=== PATIENT | male | born 1965 | race African-American/Black ===

== ENCOUNTER 2017-01-29 23:20 | Emergency (ER) | payer BC ==
[~2017-01-29] VITALS: Ht 180.3 cm; Wt 66.5 kg
[2017-01-30] MEDS ORDERED: MAALOX/HYOSCYAMINE/LIDOCAINE 45 ML BOTTLE ONE (00:39)
[2017-01-30] MEDS ORDERED: MAALOX/HYOSCYAMINE/LIDOCAINE 45 ML BOTTLE PO ONE (01:00)
[2017-01-30 01:02] LABS: ASPARTATE AMINO TRANSFERASE 41 U/L (15-37); BLOOD UREA NITROGEN 16 mg/dL (7-18)
[2017-01-30 01:19] LABS: DIFF TOTAL CELLS COUNTED 100 CELL DIFF
[2017-01-30 01:22] LABS: VERIFY COUNTS? YES
[2017-01-30 01:29] LABS: DAU SCREEN DISCLAIMER
[2017-01-30 02:33] VITALS: BP 127/89
== END 2017-01-30 02:35 | disposition home or self-care (01) ==
LOC: ED 23:59
DX: R10.84 Generalized abdominal pain (principal); F14.180 Cocaine abuse with cocaine-induced anxiety disorder; F15.180 Other stimulant abuse with stimulant-induced anxiety disorder; F17.200 Nicotine dependence, unspecified, uncomplicated
CPT/HCPCS: 36415; 80053; 80307; 81003; 83690; 85025; 99284

== ENCOUNTER 2017-02-21 16:05 | Emergency (ER) | payer BC ==
[~2017-02-21] VITALS: Ht 180.3 cm; Wt 72.6 kg
[2017-02-21] MEDS ORDERED: DIPH,PERTUSS(ACELL),TET VAC/PF 0.5 ML IM-VACC ONE (16:30)
[2017-02-21] MEDS ORDERED: SODIUM CHLORIDE FLUSH 10ML SYR IVF ONE (16:30)
[2017-02-21 16:52] LABS: BLOOD UREA NITROGEN 15 mg/dL (7-18)
[2017-02-21] MEDS ORDERED: MORPHINE SULFATE 4 MG/ML, 1ML ONE (17:25)
[2017-02-21] MEDS ORDERED: morphine SULFATE 10 MG/ML, 1ML IVPush ONE ×2 (17:30→19:00)
[2017-02-21] MEDS ORDERED: AMPICILLIN/SULBACTAM 3 GM in SODIUM CHLORIDE 0.9% 100 ML IV ONE (18:00)
[2017-02-21 18:38] VITALS: BP 128/87
== END 2017-02-21 19:34 | disposition home or self-care (01) ==
LOC: ED 18:34
DX: K04.7 Periapical abscess without sinus (principal); L02.01 Cutaneous abscess of face
CPT/HCPCS: 36415; 70487; 80048; 82040; 85025; 96365; 96375; 99285; J0295; J2270

== ENCOUNTER 2017-12-26 09:30 | Emergency (ER) | payer BC, MEDICAID ==
[~2017-12-26] VITALS: Ht 180.3 cm; Wt 80.0 kg
[2017-12-26 09:33] VITALS: BP 127/92
== END 2017-12-26 10:46 | disposition home or self-care (01) ==
LOC: ED 10:30
DX: R51 Headache (principal); R53.1 Weakness; R53.83 Other fatigue; F17.200 Nicotine dependence, unspecified, uncomplicated
CPT/HCPCS: 99283

== ENCOUNTER 2018-02-26 12:05 | Emergency (ER) | payer MEDICAID ==
[~2018-02-26] VITALS: Ht 180.3 cm; Wt 68.0 kg
[2018-02-26 12:06] VITALS: BP 111/62
[2018-02-26] MEDS ORDERED: IBUPROFEN 200 MG TABLET ONE (12:27)
[2018-02-26] MEDS ORDERED: OXYcodone/APAP 5/325MG TABLET ONE (12:27)
[2018-02-26] MEDS ORDERED: OXYcodone/APAP 5/325MG TABLET PO ONE (12:30)
[2018-02-26] MEDS ORDERED: IBUPROFEN 200 MG TABLET PO ONE (12:30)
[2018-02-26] MEDS ORDERED: LIDOCAINE-MPF 2% ,5ML ONE (13:17)
== END 2018-02-26 15:36 | disposition home or self-care (01) ==
LOC: ED 15:15
DX: S80.02XA Contusion of left knee, initial encounter (principal); Z59.0 Homelessness; M25.462 Effusion, left knee; W19.XXXA Unspecified fall, initial encounter; Y93.89 Activity, other specified; Y99.8 Other external cause status; Y92.89 Other specified places as the place of occurrence of the external cause
CPT/HCPCS: 20610; 99284

== ENCOUNTER 2018-11-24 20:10 | Emergency (ER) | payer MEDICAID ==
[2018-11-24] MEDS ORDERED: ACETAMINOPHEN 500 MG TABLET ONE (20:32)
[2018-11-24] MEDS ORDERED: ACETAMINOPHEN 500 MG TABLET PO ONE (21:00)
[2018-11-24 21:20] VITALS: BP 151/88
== END 2018-11-24 21:30 | disposition home or self-care (01) ==
LOC: ED 20:45
DX: J06.9 Acute upper respiratory infection, unspecified (principal); R05 Cough
CPT/HCPCS: 71046; 93005; 99283

== ENCOUNTER 2020-05-22 00:58 | Emergency (ER) | payer MEDICAID ==
[~2020-05-22] VITALS: Ht 180.3 cm; Wt 66.0 kg
[2020-05-22] MEDS ORDERED: HYDROmorphone 2 MG/ML, 1ML IM STA (02:05)
[2020-05-22] MEDS ORDERED: HYDROmorphone 1 MG/ML, 1ML INJ ONE (02:10)
[2020-05-22 03:10] LABS: BASOPHILS % (AUTO) 0 % (0-1); EOSINOPHILS # (AUTO) 0.18 x10^3/uL (0-0.4); EOSINOPHILS % (AUTO) 4 % (1-7); LYMPHOCYTES # (AUTO) 1.15 x10^3/uL (1-3.4); LYMPHOCYTES % (AUTO) 23 % (22-44); MD NO; MEAN CORPUSCULAR HGB CONC 31.5 g/dL (33.2-36.2); MEAN CORPUSCULAR VOLUME 79.4 fL (81-97); MEAN PLATELET VOLUME 7.4 fL (7.4-10.4); MONOCYTES # (AUTO) 0.51 x10^3/uL (0.2-0.8); MONOCYTES % (AUTO) 10 % (2-9); NEUTROPHILS # (AUTO) 3.12 x10^3/uL (1.8-6.8); NEUTROPHILS % (AUTO) 63 % (42-75); PLATELET COUNT 262 x10^3/uL (130-400); RED BLOOD COUNT 4.76 x10^6/uL (4.38-5.82); RED CELL DISTRIBUTION WIDTH 14.1 % (9.4-14.8)
[2020-05-22 03:19] LABS: ALANINE AMINOTRANSFERASE 24 U/L (12-78); ALBUMIN 3.1 g/dL (3.4-5.0); ANION GAP 3 mmol/L (5-15); CALCIUM 8.8 mg/dL (8.5-10.1); CHLORIDE 105 mmol/L (98-107); CREATININE 1.21 mg/dL (0.7-1.3)
[2020-05-22 03:21] LABS: ALKALINE PHOSPHATASE 54 U/L (45-117); BILIRUBIN,TOTAL 0.5 mg/dL (0.2-1.0); TOTAL PROTEIN 6.7 g/dL (6.4-8.2)
--- NOTE | 2020-05-22 04:24 | NUR ---
Pt has been woken up and reminded multiple times to provide urine sample. Pt states he is unable to at this time and will attempt soon. Pt has urinal at bedside
--- NOTE | 2020-05-22 04:30 | NUR ---
UA collected and sent to lab
[2020-05-22 04:50] LABS: MICROSCOPIC NOT IND
[2020-05-22 05:14] VITALS: BP 110/61
--- NOTE | 2020-05-22 05:45 | NUR ---
Pt DCed at this time, VSS. Education provided on new prescriptions, OTC imodium, diet choices, and care at home. All questions addressed and pt verbalized understanding. Pt ambualted to registration without issue
== END 2020-05-22 05:49 | disposition home or self-care (01) ==
LOC: ED 03:10
DX: K52.9 Noninfective gastroenteritis and colitis, unspecified (principal); F17.210 Nicotine dependence, cigarettes, uncomplicated
CPT/HCPCS: 36415; 74021; 76700; 80053; 81003; 83690; 85025; 96372; 99285; J1170

== ENCOUNTER 2020-10-06 20:54 | Emergency (ER) | payer MEDICAID ==
[~2020-10-06] VITALS: Ht 180.3 cm; Wt 70.0 kg
--- NOTE | 2020-10-06 22:11 | NUR ---
report recieved from margaret ramirez. erp at bedside
[2020-10-06] MEDS ORDERED: HYDROcodone/APAP 5/325 TABLET ONE (22:15)
[2020-10-06] MEDS ORDERED: HYDROcodone/APAP 5/325 TABLET PO ONE (22:30)
[2020-10-06] MEDS ORDERED: SULFAMETH./TRIMETHOPRIM DS 800MG/160MG TABLET ONE (23:03)
[2020-10-06] MEDS ORDERED: CEPHALEXIN 500 MG CAPSULE ONE (23:03)
[2020-10-06] MEDS ORDERED: LIDOCAINE-MPF 1%, 5ML ONE (23:24)
[2020-10-06] MEDS ORDERED: SULFAMETH./TRIMETHOPRIM DS 800MG/160MG TABLET PO ONE (23:30)
[2020-10-06] MEDS ORDERED: CEPHALEXIN 500 MG CAPSULE PO ONE (23:30)
[2020-10-06] MEDS ORDERED: LIDOCAINE 1%, 10ML INFIL ONE (23:30)
--- NOTE | 2020-10-06 23:42 | NUR ---
erp at bedside for i and d
[2020-10-06] MEDS ORDERED: NEOSPORIN OINT. PKT 1 PACKET ONE (23:52)
[2020-10-06 23:57] VITALS: BP 121/43
== END 2020-10-07 00:20 | disposition home or self-care (01) ==
LOC: ED 21:39
DX: L03.811 Cellulitis of head [any part, except face] (principal); F17.210 Nicotine dependence, cigarettes, uncomplicated
CPT/HCPCS: 70450; 99284; 99406